=== PATIENT | female | born 1995 | race Caucasian/White ===

== ENCOUNTER 2016-11-11 12:54 | Emergency (ER) | payer OTHER ==
[2016-11-11 13:12] VITALS: BP 127/81
--- NOTE | 2016-11-11 14:22 | UC ---
Throat Pain/Nasal [place] HPI - HPI Summary HPI Summary: TWO DAY HISTORY OF SWOLLEN TONSILS LYMPH NODES COUGH. - History of Current Complaint Chief Complaint: UCGeneralIllness Stated Complaint: SWOLLEN GLANDS Time Seen by Provider: 11/11/16 13:22 Hx Obtained From: Patient Hx Last Menstrual Period: 11/04/16 Onset/Duration: Sudden Onset Pain Intensity: 0 Cough: Nonproductive Associated Signs & Symptoms: Positive: Negative - Epiglottits Risk Factors Epiglottis Risk Factors: Negative - Allergies/Home Medications Allergies/Adverse Reactions: Allergies Allergy/AdvReac Type Severity Reaction Status Date / Time No Known Allergies Allergy Verified 11/11/16 13:13 Home Medications: Home Medications Txafjxjvoklye-Qbrffxnyal-Scfjv [Nyquil Severe Cold/Flu 5-6.25-10-325 mg/15Ml] 1 liq PO 11/11/16 [History] PMH/Surg Hx/FS Hx/Imm Hx Previously Healthy: Yes Endocrine History Of: Denies: Diabetes Cardiovascular History Of: Denies: Hypertension, Pacemaker/ICD GI/ History Of: Denies: Renal Disease - Surgical History Surgical History: Yes Surgery Procedure, Year, and Place: TENDON REPLACEMENT RIGHT ANKLE 2010 - Family History Known Family History: Positive: None - Social History Occupation: Student Lives: Alone Alcohol Use: Weekly Substance Use Type: None Smoking Status (MU): Never Smoked Tobacco Review of Systems Constitutional: Negative Skin: Negative Eyes: Negative ENT: Sore Throat Respiratory: Negative Cardiovascular: Negative Gastrointestinal: Negative Genitourinary: Negative Motor: Negative Neurovascular: Negative Musculoskeletal: Negative Neurological: Negative Psychological: Negative All Other Systems Reviewed And Are Negative: Yes Physical Exam Triage Information Reviewed: Yes Appearance: Well-Appearing, No Pain Distress, Well-Nourished Vital Signs: Initial Vital Signs Temp 98.5 F 11/11/16 13:09 Pulse 105 11/11/16 13:09 Resp 18 11/11/16 13:09 BP 127/81 11/11/16 13:09 Pulse Ox 98 11/11/16 13:09 Eye Exam: Normal Eyes: Positive: Conjunctiva Clear ENT: Positive: Hearing grossly normal, Pharyngeal erythema, TMs normal, Tonsillar swelling Dental Exam: Normal Neck exam: Normal Neck: Positive: Supple, Nontender, No Lymphadenopathy Respiratory Exam: Normal Respiratory: Positive: Chest non-tender, Lungs clear, Normal breath sounds, No respiratory distress, No accessory muscle use Cardiovascular Exam: Normal Cardiovascular: Positive: RRR, No Murmur, Pulses Normal Abdominal Exam: Normal Musculoskeletal Exam: Normal Neurological Exam: Normal Psychological Exam: Normal Skin Exam: Normal Throat Pain/Nasal Course/Dx - Differential Dx/Diagnosis Differential Diagnosis/HQI/PQRI: Pharyngitis, Sinusitis, Tonsillitis, URI Provider Diagnoses: TONSILLITIS Discharge - Discharge Plan Condition: Stable Disposition: HOME Patient Education Materials: Mononucleosis (ED), Tonsillitis (ED) Referrals: Yefri MONTESINOS,Rody Quinones [Primary Care Provider] -
[2016-11-11 14:27] LABS: EBV Response NO
[2016-11-11 19:06] LABS: Hematocrit 37 % (35-47); Hemoglobin 12.1 g/dl (12.0-16.0); Mean Corpuscular HGB Conc 33 g/dl (31-36); Mean Corpuscular Hemoglobin 27 pg (27-31); Mean Corpuscular Volume 84 fL (80-97); Mean Platelet Volume 10 um3 (7.4-10.4); Red Blood Count 4.45 10^6/ul (4.0-5.4); Red Cell Distribution Width 14 % (10.5-15)
[2016-11-11 19:09] LABS: Add Diff/Slide Review? Manual Diff Added; Comments Flag Yes
[2016-11-11 19:19] LABS: Manual Entry Verification ROB0080; Mono Internal Control QC Line Present
[2016-11-11 19:40] LABS: Eosinophils % 2 % (0-6); Immature Granulocytes 3 % (0-9); Neutrophil % 39 % (38-83); RBC Morphology Normal (Normal); Reactive Lymph % 3 % (0-6)
== END 2016-11-11 14:00 | disposition home or self-care (01) ==
LOC: UCEAST 12:54
DX: J03.90 Acute tonsillitis, unspecified (principal); R05 Cough
CPT/HCPCS: 36415; 85025; 86308; 87651; 99211; G0463

== ENCOUNTER 2016-11-14 19:50 | Emergency (ER) | payer OTHER ==
[2016-11-14 20:37] VITALS: BP 135/83
[2016-11-14] MEDS ORDERED: methylPREDNISolone 125 MG* 2 ML VIAL IM ONE (20:47)
[2016-11-14] MEDS ORDERED: HYDROcodone/ACETAMIN 5-325 MG* 1 TAB PO ONE (20:50)
--- NOTE | 2016-11-14 21:38 | UC ---
Throat Pain/Nasal [place] HPI - HPI Summary HPI Summary: THREE DAYS AGO HAD POSITIVE MONOSPOT RESULTS. THROAT IS BECOMING MORE SWOLLEN, WOULD LIKE SOMETHING FOR PAIN AND DISCOMFORT WITH TONSILS. - History of Current Complaint Chief Complaint: UCGeneralIllness Stated Complaint: SORE THROAT Time Seen by Provider: 11/14/16 20:29 Hx Obtained From: Patient Hx Last Menstrual Period: 10/30/16 Onset/Duration: Gradual Onset, Lasting Days, Worse Since - THREE DAYS Severity: Moderate Pain Intensity: 4 Pain Scale Used: 0-10 Numeric Cough: None Associated Signs & Symptoms: Positive: Dysphagia, Hoarseness, Fever - Allergies/Home Medications Allergies/Adverse Reactions: Allergies Allergy/AdvReac Type Severity Reaction Status Date / Time No Known Allergies Allergy Verified 11/11/16 13:13 Home Medications: Home Medications Acetaminophen [Tylenol] 11/14/16 [History] Ibuprofen [Advil Migraine] 11/14/16 [History] PMH/Surg Hx/FS Hx/Imm Hx Previously Healthy: Yes Endocrine History Of: Denies: Diabetes Cardiovascular History Of: Denies: Hypertension, Pacemaker/ICD GI/ History Of: Denies: Renal Disease - Surgical History Surgical History: Yes Surgery Procedure, Year, and Place: TENDON REPLACEMENT RIGHT ANKLE 2010 - Family History Known Family History: Positive: None - Social History Occupation: Student Lives: With Family Alcohol Use: Weekly Substance Use Type: None Smoking Status (MU): Never Smoked Tobacco Review of Systems Constitutional: Fever, Chills Skin: Negative Eyes: Negative ENT: Sore Throat Respiratory: Negative Cardiovascular: Negative Gastrointestinal: Negative Genitourinary: Negative Motor: Negative Neurovascular: Negative Musculoskeletal: Negative Neurological: Negative Psychological: Negative All Other Systems Reviewed And Are Negative: Yes Physical Exam Triage Information Reviewed: Yes Appearance: Ill-Appearing - MILD, Pain Distress - MODERATE, Thin Vital Signs: Initial Vital Signs Temp 100.0 F 11/14/16 20:32 Pulse 115 11/14/16 20:32 Resp 18 11/14/16 20:32 BP 135/83 11/14/16 20:32 Pulse Ox 98 11/14/16 20:32 Vital Signs Reviewed: Yes Eye Exam: Normal ENT: Positive: Hearing grossly normal, TMs normal, Tonsillar swelling, Tonsillar exudate, Other: - ENLARGED TONSILS SIMMETRIC, AIRWAY PATENT Dental Exam: Normal Neck: Positive: Supple, Nontender, Enlarged Nodes @ - ANT CERVICAL LN Respiratory Exam: Normal Respiratory: Positive: Chest non-tender, Lungs clear, Normal breath sounds, No respiratory distress, No accessory muscle use Cardiovascular Exam: Normal Cardiovascular: Positive: RRR, No Murmur, Pulses Normal, Brisk Capillary Refill Abdominal Exam: Normal Musculoskeletal Exam: Normal Musculoskeletal: Positive: Strength Intact, ROM Intact Neurological Exam: Normal Psychological Exam: Normal Psychological: Positive: Normal Response To Family Skin Exam: Normal Throat Pain/Nasal Course/Dx - Differential Dx/Diagnosis Differential Diagnosis/HQI/PQRI: Otitis Media, Pharyngitis, Sinusitis, Tonsillitis Provider Diagnoses: MONONUCLEOSIS Discharge - Discharge Plan Condition: Stable Disposition: HOME Prescriptions: Dexamethasone TAB* [Decadron TAB*] 8 mg PO DAILY #4 tab HYDROcodone/ACETAMIN 5-325 MG* [Gallina 5-325 TAB*] 1 tab PO Q12HR PRN #8 tab MDD TWO TABS PRN Reason: Pain Patient Education Materials: Mononucleosis (ED) Referrals: Yefri MONTESINOS,Rody Quinones [Primary Care Provider] -
== END 2016-11-14 21:07 | disposition home or self-care (01) ==
LOC: UCEAST 19:50
DX: B27.90 Infectious mononucleosis, unspecified without complication (principal)
CPT/HCPCS: 96372; 99212; G0463; J2930

== ENCOUNTER 2017-03-10 06:29 | Day surgery (SDC) | payer OTHER ==
--- NOTE | 2017-03-05 17:45 | HP ---
PREOPERATIVE HISTORY AND PHYSICAL: DATE OF ADMISSION/SURGERY: 03/10/17 [facility] ATTENDING SURGEON: Dr. Farley (DICTATED BY MARIANA SINGH) PROCEDURE: Right knee arthroscopy possible meniscus repair, ACL reconstruction with bone to bone allograft. CHIEF COMPLAINT: Right knee pain. HISTORY OF PRESENT ILLNESS: Katie is a 21-year-old female who presents to the clinic for right knee pain and instability after a collision with a goalie while playing soccer on 09/04/16. She failed conservative measures including physical therapy, therefore she has agreed to undergo a right knee arthroscopy, partial arthroscopy, possible meniscus repair, ACL reconstruction with bone to bone allograft with Dr. Farley on 03/10/17. PAST MEDICAL HISTORY: Asthma. PAST SURGICAL HISTORY: Right ankle tendon repair. Denies prior complications with anesthesia. MEDICATIONS: Ibuprofen 200 mg, take 2 by mouth 4 times a day as needed. ALLERGIES: No known drug allergies. FAMILY HISTORY: Denies pertinent family history. Denies family history of DVT or PE. SOCIAL HISTORY: She is a [employer] student. She lives with a roommate. She denies tobacco use. She reports occasional alcohol use. She is right hand dominant. REVIEW OF SYSTEMS: Negative for fevers, chills, night sweats. No known anesthesia problems. HEENT: Negative for headache, lightheadedness, syncopal episodes. Integumentary: Negative for abrasions, lesions, or open wounds. Cardiothoracic: Negative for chest pain, palpitations, or edema. Negative for hypertension. Pulmonary: Positive for asthma. Denies shortness of breath with exertion, chronic cough, or COPD. GI: Negative for nausea, vomiting, diarrhea , or GERD. : Negative for nocturia, history of UTIs, or kidney problems. Musculoskeletal: Positive for current complaint. Neurologic: Negative for numbness, tingling, history of seizure, stroke, or epilepsy. Endocrine: Negative for diabetes or thyroid issues. Heme: Negative for easy bruising, anemia, excessive bleeding, bleeding disorder, history of DVT or PE. Infectious Disease: Negative for history of MRSA. PHYSICAL EXAMINATION GENERAL: Well-developed, well-nourished 21-year-old female, in no acute distress. Alert and oriented x3 with appropriate mood and affect. VITAL SIGNS: Height 66, weight 145. Pulse 87, blood pressure 126/80, temperature 97.5. BMI 23.4. HEENT: Normocephalic, atraumatic. NECK: Supple. Throat clear. PULMONARY: Lungs are clear to auscultation bilaterally. No wheezing, rhonchi or rales. CARDIO: Regular rate and rhythm. S1, S2. No murmurs, gallops, or rubs. No edema. ABDOMEN: Positive bowel sounds. Soft, nontender. NEUROLOGIC: Alert and oriented x3. Cranial nerves grossly intact. Sensation is intact to light touch. MUSCULOSKELETAL: Right lower extremity, skin is intact. Mild effusion. Range of motion is 0 to 110. 2B Betzy. Negative posterior drawer. Stable with varus and valgus stress. Calves are soft and nontender. +2 dorsalis pedis pulse. Sensation intact to light touch distally. STUDIES: MRI of the right knee revealed a grade 3 MCL and ACL tear and a medial meniscus tear. IMPRESSION: Right knee medial meniscus tear and ACL tear. PLAN: The patient is scheduled to undergo a right knee arthroscopy, possible meniscus repair, ACL reconstruction with bone to bone allograft. She will return to the office in 8 days postop for followup and suture removal. Percocet will be used for postop pain management. MARIANA SINGH [id number]/[facility] #: [id number] CARIS[place]
[~2017-03-10 06:29] MED LIST: Buffered Lidocaine 0.9% SYRIN* 5 ML/SYR SYRINGE INTRADERM ONE; Famotidine IV* 10 MG/ML 2 ML (20 mg) IV ONE
[2017-03-10] MEDS ORDERED: Famotidine IV* 10 MG/ML 2 ML (20 mg) ONE (06:36)
[2017-03-10] MEDS ORDERED: ceFAZolin 2 GM PREMIX(*) 2 GM/50 ML BAG IVPB ONE (06:36)
[2017-03-10] MEDS ORDERED: Buffered Lidocaine 0.9% SYRIN* 5 ML/SYR SYRINGE ONE (06:36)
[2017-03-10] MEDS ORDERED: Bupivacaine 0.25% SDV* 30 ML ONE (07:08)
[2017-03-10] MEDS ORDERED: Bupivacaine 0.25% EPI 200,000* 30 ML SDV ONE (07:08)
[2017-03-10] MEDS ORDERED: Midazolam* 1 MG/ML 5 ML VIAL (5 MG) ONE (07:32)
[2017-03-10] MEDS ORDERED: fentaNYL* 50 MCG/ML 2 ML VIAL (100 MCG VIAL) ONE (07:32)
[2017-03-10] MEDS ORDERED: KETAMINE HCL* 50 MG/ML 10 ML VIAL ONE (07:32)
[2017-03-10] MEDS ORDERED: Dexamethasone IV* 4 MG/ML 1 ML (4 MG) ONE (08:02)
[2017-03-10] MEDS ORDERED: Morphine INJ* 10 MG/ML 1 ML SYRINGE ONE (08:02)
[2017-03-10] MEDS ORDERED: PROCHLORPERAZINE INJ 5 MG/ML 2 ML VIAL ONE (08:02)
[2017-03-10] MEDS ORDERED: Propofol* 10 MG/ML 20 ML BTL IV PUSH ONE (08:02)
[2017-03-10] MEDS ORDERED: Lidocaine 2% PF * 5 ML VIAL ONE (08:02)
[2017-03-10] MEDS ORDERED: Ondansetron INJ* 2 MG/ML VIAL ONE (08:02)
[2017-03-10] MEDS ORDERED: Ketorolac INJ* 30 MG/ML 1 ML VIAL ONE (09:10)
[2017-03-10 10:51] VITALS: BP 123/90
--- NOTE | 2017-03-10 23:11 | OP ---
DATE OF OPERATION: 03/10/17 - [facility] DATE OF : 89 SURGEON: Wilbert Farley MD NARCOTICS INVESTIGATOR: MARIANA Boyce. An behavioral health assistant was needed for the entirety of the case to help with positioning, retraction and utilized throughout all portions of the case. ANESTHESIOLOGIST: Dr. Aaron Romero. ANESTHESIA: General. PRE-OP DIAGNOSIS: Right knee grade 3 ACL rupture with grade 3 MCL rupture and medial meniscus tear. POST-OP DIAGNOSIS: Grade 3 ACL rupture, stable medial collateral ligament and healed meniscal tear. OPERATIVE PROCEDURE: 1. Right knee arthroscopy with partial lateral meniscectomy. 2. ACL reconstruction using beva-zcfblrlo-sfobtn-bone autograft. TOURNIQUET TIME: 30 minutes at 250 mmHg. COMPLICATIONS: None. ESTIMATED BLOOD LOSS: Minimal. IMPLANTS USED: 2 Noriega and Nephew SoftSilk screws, one is 9 x 25 and the other was 7 x 25. INDICATIONS: Katie Mcgrath is a 21-year-old female who sustained an injury to her knee in August of last year while playing soccer. She was diagnosed with a grade 3 ACL and MCL tear as well as a medial meniscus tear. She was given time to work on therapy and range of motion and she eventually healed her MCL. As we did talk about, she has persistent episodes of instability and she is active, so we talked about reconstruction of the ACL with possible meniscus surgery. Risks and benefits were discussed at length including, but not limited to bleeding, infection, damage to nerves, vessels, surrounding structures, wound nonhealing, persistent pain, need for further surgery, scarring, stiffness, incomplete relief of symptoms, re- rupture, risk of DVT, risk of anesthesia. She has elected to proceed. DESCRIPTION OF PROCEDURE: The patient was greeted in the preoperative area by the attending surgeon. The correct extremity was marked, consent was confirmed. The patient was then brought back to the operating suite where she was placed in the supine position on the operating table. She then underwent general anesthesia and LMA intubation after which the examination of the knee was done. She was found to have a range of motion from 0 to 1 opening to valgus stress at 30 degrees, but stable to varus valgus stress at 0 degrees, 1+ pivot shift, 2B Betzy, negative posterior drawer. A non-sterile tourniquet was placed high on the proximal thigh. After a miniature surgical pause, the knee was intra-articularly injected with 0.25% Marcaine with epi after which, a lateral post was positioned as well as a 10- pound beanbag at the end of the bed to keep the knee at 90. The right leg was then prepped and draped in the usual sterile fashion beginning with chlorhexidine soap scrub and alcohol wipe and a final prep with ChloraPrep. After appropriate surgical pause indicting side, site, procedure, and administration of antibiotics, an Esmarch was used to exsanguinate the limb and the tourniquet was inflated to 250 mmHg. A midline incision over the knee was then made. Soft tissues were carefully dissected to expose the paratenon, which was then carefully protected for lateral closure. The paratenon was protected again for layer. The patellar tendon width was found to be about 33 mm in its midpoint and center 10 mm was then harvested using #10 blade. The soft tissues were harvested using a blade. The sagittal saw was then used to harvest bone blocks. Femoral bone block of size 9 mm in width and 25 mm in length and a typical bone block of 10 x 30 mm. The sagittal saw was then used to make the cuts, the drill was then used to make drills for suture passage. The osteotome was then used to loosen up the graft and the graft was then prepared on the back table. The behavioral health assistant meanwhile was closing the patellar tendon with 0 Vicryl in the interrupted fashion. The graft was wrapped in saline soaked gauze and placed on the back table after it was completed and all appropriate sutures. Again, it was sized 9 x 25 mm femoral tunnel and 10 x 32 mm tibial tunnel, graft length was 35 mm. At this point, the attention was directed to arthroscopy. The #11 blade was then used to incise capsule. The scope was positioned in the joint. The joint was examined. There was abundant fat pad anteriorly. The anterior medial port was made in an outside-in fashion through the capsule. The ACL was completely torn off of the femoral side. It is scarred to the PCL. There was tibial stump in place. A shaver was brought in to debride the fat pad back. At this point, there was abundant soft fat pad that was removed. The scope was then positioned in the suprapatellar pouch and the patellofemoral joint had grade 0 changes. The medial gutter was free of loose body. The medial femoral condyle had a small area of grade 1 change, but the scope was then positioned in the medial compartment. The remainder of the cartilage on the medial femoral condyle, medial tibial plateau had grade 0 changes. The meniscus was probed and found to be intact and healed quite well posteriorly. Therefore, no repair was done. The knee was then placed in a [id number] position and the lateral meniscus was examined. There were no tears. The popliteal hiatus was identified and there was no tearing. There was mild fraying of the meniscus, which was debrided back using the shaver. The root was intact. Lateral femoral condyle, lateral tibial plateau had grade 0 changes. The knee was then placed in 90 degrees and attention was directed to the ACL. Once the stump and debris were removed, the femoral portion was prepared. There was a narrow notch, which required a small notchplasty. That was done by the round pollo. Once this was complete, the Kathleen awl was then used to niraj the presumed spot for the femoral tunnel. At this point, the attention was then directed to the tibial footprint. This was prepared using electrocautery device. The tip to tip guide was placed in the center of the stump and set to about 50 degrees. This was then drilled and once the guidewire was placed in the appropriate location, this was over drilled with a size 10 mm full bore reamer. All excess bone was saved for later bone graft. The tunnel was then carefully prepared and and the tunnel was intact in the appropriate position. At this point, the attention was directed to the femoral tunnel. The Noriega and Nephew straight guide was then used to place the femoral tunnel in the footprint. This was then drilled with a Beath pin. The camera was then used to check the placement of the pin by changing from the lateral port to the medial portal to make sure that visualization was appropriate. At this point, this was over drilled with size 9 mm low-profile reamer to the depth of about 27 mm. All loose debris were removed and the insurance claims specialist was then used to make a small notch in the tunnel. The tunnel was checked and found to be intact with an adequate back wall. At this point, free ends of #2 Ti-Cron sutures were passed to the islet of the Beath pin and advanced through the skin. This was then passed in antegrade fashion through the tibial tunnel. The graft was then brought back to the operating table. The graft was then placed under arthroscopic visualization into the femoral tunnel, was found to sit fully. With tension on both of the tibial and femoral end, a nitinol wire was placed above the graft and a size 7 x 25 mm screw was placed with excellent purchase for interference fixation of the femoral tunnel. At this point, the images were obtained. The knee was taken to full extension , found not to impinge anteriorly. The knee was then cycled 15 times. The scope was then brought back to the joint to visualize the graft and it was found to not move. The knee was then placed in approximately 10 to 20 degrees of flexion with tension on the tibial suture and posterior drawer. The size 9 x 25 mm screw was then used to secure this to a bone block. This was with excellent purchase. The knee was taken through range of motion. Betzy was assessed and found to be stable. The scope was then brought back into the joint and the joint was examined and the graft appeared to be stable. There was no evidence of the screw penetrating the tunnel. At this point, final images were obtained. All fluids and most debris was removed from the knee. The excess bone block about 4 mm distally was then removed with a sagittal saw. The wounds were copiously irrigated. Excess bone graft was placed in the patellar defect as well as tibial defect. The fascia was oversewn proximally with 0 Vicryl. The paratenon was then closed with 2-0 Vicryl in a running fashion. The subcutaneous tissues were closed with 2-0 Vicryl and the skin with a 3-0 Monocryl. Sterile dressings were applied. The knee was intra- articularly injected with 0.25% Marcaine plain as well as along the incisions. Cryo/Cuff was placed as well as a hinged knee brace, locked in extension. She was awoken from anesthesia and transferred to the PACU in stable condition. POSTOPERATIVE PLAN: She will be weightbearing as tolerated with extension for 4 weeks. She will start therapy this week. She will be discharged on pain medications, antibiotics. DVT prophylaxis was considered, but deferred due to no previous personal or family history. I will see the patient back in approximately 6 to 8 days. [id number]/[facility] #: [id number] [facility]
== END 2017-03-10 11:04 | disposition home or self-care (01) ==
LOC: OREAST 06:29
PROVIDERS: ATTEND Orthopaedic Surgery
DX: S83.511A Sprain of anterior cruciate ligament of right knee, initial encounter (principal); S83.411A Sprain of medial collateral ligament of right knee, initial encounter; S83.281A Other tear of lateral meniscus, current injury, right knee, initial encounter; W51.XXXA Accidental striking against or bumped into by another person, initial encounter; Y92.9 Unspecified place or not applicable; J45.909 Unspecified asthma, uncomplicated
CPT/HCPCS: C1713; J0690; J0780; J1100; J1885; J2250; J2270; J2405; J2704; J3010